=== PATIENT | male | born 1990 | race Caucasian/White ===

== ENCOUNTER 2018-12-07 07:16 | Emergency (ER) | payer BC, OTHER ==
[2018-12-07] MEDS ORDERED: Adacel (T-DAP) 0.5 ML SYRINGE ONE (08:15)
== END 2018-12-07 08:40 | disposition home or self-care (01) ==
LOC: ERS 07:16
DX: S60.311A Abrasion of right thumb, initial encounter (principal); Z57.8 Occupational exposure to other risk factors; Z23 Encounter for immunization; W22.8XXA Striking against or struck by other objects, initial encounter
CPT/HCPCS: 90471; 90715